=== PATIENT | male | born 1945 | race Caucasian/White ===

== ENCOUNTER 2019-02-19 18:33 | Emergency (ER) | payer MEDICARE, MEDICAID, SELFPAY ==
[2019-02-19 18:37] VITALS: BP 119/70; PULSE 59; RESP 16; TEMP 36.8; O2SAT 100; BMI 29.4
--- NOTE | 2019-02-19 19:02 | ED.SKABFB ---
HPI - Skin/Abscess/Foreign Bdy General Chief complaint: Skin/Abscess/Foreign Body Stated complaint: right foot infection Time Seen by Provider: 02/19/19 19:01 Source: patient Mode of arrival: Ambulatory Limitations: no limitations History of Present Illness HPI narrative: 73-year-old male was sent to us from the clinic over on for concern of a lower extremity cellulitis. Patient is a diabetic. They have noticed over the past several days/weeks that he has had an area on his right ankle over the Achilles tendon that has been red and tender. Unsure as the exact medications that the patient has taken it does appear that he has been on antibiotics over the past several weeks. I do think that it is Keflex according to his report. He did receive a shot of Rocephin prior to transfer here to the ER. Related Data Home Medications Medication Instructions Recorded Confirmed Metformin Hydrochloride 500 mg PO #0 10/10/05 (Glucophage) Previous Rx's Medication Instructions Recorded doxycycline hyclate 100 mg PO BID 10 Days #20 tab 02/19/19 Allergies Allergy/AdvReac Type Severity Reaction Status Date / Time No Known Drug Allergies Allergy Verified 02/19/19 18:44 Review of Systems Constitutional Constitutional: Denies fever(s) Cardiovascular Cardiovascular: Denies chest pain and Denies dyspnea Respiratory Respiratory: Denies dyspnea Gastrointestinal Gastrointestinal: Denies abdominal pain Musculoskeletal Musculoskeletal: Denies myalgias and Denies arthralgias Integumentary/Breasts Comments: Redness on the back of the right foot concern for an abscess Neurologic Neurologic: Denies behavioral changes Psychiatric Psychiatric: Denies behavioral changes Hematologic/Lymphatic Hematologic/Lymphatic: Denies easy bleeding and Denies easy bruising Allergic/Immunologic Allergic/Immunologic: Denies urticaria Patient History Medical History Diabetes (Acute) Social History Smoking Status: Never smoker Smoking Status: Never smoker Substance Use Type: marijuana Exam Initial Vital Signs Initial Vital Signs: Vital Signs Temperature 98.2 F 02/19/19 18:37 Pulse Rate 59 L 02/19/19 18:37 Respiratory Rate 16 02/19/19 18:37 Blood Pressure 119/70 02/19/19 18:37 Pulse Oximetry 100 02/19/19 18:37 Const General: cooperative and comfortable Orientation: alert, awake and oriented x3 Cardio Pulses: dorsalis pedis present on the right Skin Other: 2 cm area of fluctuance on the posterior aspect of the right heel with the Achilles tendon. No surrounding erythema. Rest of his right foot exam has no erythema Neuro General: alert, awake and oriented x3 Cognition: normal cognition Speech: speech normal Motor: muscle tone normal throughout Extrem General: normal to inspection and capillary refill normal Other: Full range of motion of right ankle Psych Appearance: grossly normal and well kempt Procedures Abscess I/D I&D #1: Site: other (Ankle) Side (if applicable): right Local Anesthetic: lidocaine 1% Amount of anesthesia used (mL): 3 Technique: incised with #11 blade Irrigation: No Packing used?: none Course Orders Ordered: Discontinued Medications Lidocaine HCl (Xylocaine 1% (Pf)) 2 ml INJ NOW ONE Stop: 02/19/19 19:17 Last Admin: 02/19/19 19:20 Dose: 2 ml [facility] Vital Signs Vital signs: Vital Signs - 8 hr 02/19/19 18:37 Temperature 98.2 F Pulse Rate 59 L Respiratory Rate 16 Blood Pressure 119/70 Pulse Oximetry 100 MDM - Skin/Abscess/Foreign Bdy MDM Narrative Medical decision making narrative: Bedside ultrasound did show a small abscess under the area in question on the back of his right ankle. This was I and D this described above with return of small amount of purulent material. There is minimal surrounding erythema. Rest of his foot exam is unremarkable. Low suspicion for septic joint. Patient is somewhat confused about what antibiotics he is taking but it does appear that he has been on and is currently taking Keflex. Given the fact that this is a abscess will switch him to doxycycline. No indication for admission the hospital for IV antibiotics. We discussed return precautions and follow-up instructions. He expressed understanding and agreement with plan. Discharge Plan Departure Patient Disposition: Home Clinical Impression: Abscess of skin or subcutaneous tissue Qualifiers: Site of cutaneous abscess: extremity Site of cutaneous abscess of extremity: lower extremity Laterality: right Qualified Code(s): L02.415 - Cutaneous abscess of right lower limb Discharge Date/Time: 02/19/19 19:33 Instructions: DI for Skin Abscess Activity Restrictions/Additional Instructions: Stop the antibiotics that you have been taking and start taking the new prescription tomorrow as directed. Contact your primary provider for follow-up. Return to the emergency department for any new or worsening symptoms Prescriptions: New doxycycline hyclate 100 mg tablet 100 mg PO BID 10 Days Qty: 20 RF: 0 No Action Metformin Hydrochloride (Glucophage) 500 mg PO Qty: 0 RF: 0 Referrals: Jcarlos Saul MD [Primary Care Provider] -
--- NOTE | 2019-02-19 19:18 | PC.NURSE ---
PCP told pt to come to ER from [facility]. Concerns of cellulitis, infection to R foot for 3 weeks. Recieved israel HUITRON at dr office today.
[2019-02-19] MEDS: LIDOCAINE 1% (PF) 2 ML INJ (19:20)
== END 2019-02-19 19:33 | disposition home or self-care (01) ==
PROVIDERS: Emergency Provider Emergency Medicine; Family Provider Family Medicine; PCP Family Medicine
DX: L02.415 Cutaneous abscess of right lower limb (principal)
CPT/HCPCS: 10060; 99281; 99283

== ENCOUNTER → 2021-04-28 08:13 | Outpatient (CLI) | payer MEDICARE, MEDICAID, SELFPAY ==
[2021-04-28 19:51] LABS: COVID19 - ORCAS (NP or Nasal) Negative (Negative)
== END ==
PROVIDERS: Family Provider Family Medicine; PCP Family Medicine; Visit Provider Physician Assistant Medical
DX: Z01.812 Encounter for preprocedural laboratory examination (principal); Z20.822 Contact with and (suspected) exposure to COVID-19
CPT/HCPCS: C9803; U0003

== ENCOUNTER → 2022-01-10 09:39 | Outpatient (CLI) | payer MEDICARE, MEDICAID, SELFPAY | PROVIDERS: Family Provider Family Medicine; PCP Family Medicine; Visit Provider Physician Assistant | DX: R39.15 Urgency of urination (principal) | CPT/HCPCS: 87086 ==

== ENCOUNTER → 2022-01-11 13:33 | Outpatient (CLI) | payer MEDICARE, MEDICAID, SELFPAY ==
[2022-01-11 20:08] LABS: Alanine Aminotransferase 26 IU/L (<50); Albumin 4.1 g/dL (3.5-5.0); Albumin Globulin Ratio 1.5 (1.0-2.8); Alkaline Phosphatase 100 U/L (38-126); Aspartate Aminotransferase 25 IU/L (17-59); BUN Creatinine Ratio 17.7 (6-22); Bilirubin Total 1.5 mg/dL (0.2-1.3); Blood Urea Nitrogen 29 mg/dL (9-20); Calcium 9.2 mg/dL (8.4-10.2); Carbon Dioxide 23 mmol/L (22-32); Chloride 106 mmol/L (98-107); Estimated Glomerular Filt Rate 44 mL/min (>60); Globulin 2.8 g/dL (1.7-4.1); Glucose 170 mg/dL (80-110); HEMOLYSIS 19 (0-50); Hemoglobin A1C% w Est Avg Glu 7.9 % (4.0-6.0); Potassium 4.1 mmol/L (3.4-5.1); Sodium 140 mmol/L (137-145); Total Protein 6.9 g/dL (6.3-8.2)
[2022-01-11 20:36] LABS: Prostate Specific Antigen 3.21 ng/mL (0.10-4.00)
== END ==
PROVIDERS: Physician Assistant; Family Provider Family Medicine; PCP Family Medicine; Visit Provider Family Medicine
DX: E11.43 Type 2 diabetes mellitus with diabetic autonomic (poly)neuropathy (principal); R39.15 Urgency of urination; Z79.4 Long term (current) use of insulin; E78.5 Hyperlipidemia, unspecified; I25.10 Atherosclerotic heart disease of native coronary artery without angina pectoris; Z12.5 Encounter for screening for malignant neoplasm of prostate
CPT/HCPCS: 80053; 83036; 84153; G0103

== ENCOUNTER → 2022-01-19 09:24 | Outpatient (CLI) | payer MEDICARE, MEDICAID, SELFPAY | PROVIDERS: Family Provider Family Medicine; PCP Family Medicine; Visit Provider Physician Assistant | DX: N40.1 Benign prostatic hyperplasia with lower urinary tract symptoms (principal); N13.8 Other obstructive and reflux uropathy | CPT/HCPCS: 87086 ==

== ENCOUNTER → 2022-02-12 10:04 | Outpatient (CLI) | payer MEDICARE, MEDICAID, SELFPAY | PROVIDERS: Family Provider Family Medicine; PCP Family Medicine; Visit Provider Family Medicine | DX: R31.0 Gross hematuria (principal) | CPT/HCPCS: 87086; 87147 ==

== ENCOUNTER → 2022-03-09 06:54 | Outpatient (CLI) | payer MEDICARE, MEDICAID, SELFPAY ==
[2022-03-09 22:14] LABS: COVID19 - ORCAS (NP or Nasal) Negative (Negative)
== END ==
PROVIDERS: Family Provider Family Medicine; PCP Family Medicine; Visit Provider Family Medicine
DX: Z20.822 Contact with and (suspected) exposure to COVID-19 (principal); Z01.812 Encounter for preprocedural laboratory examination
CPT/HCPCS: C9803; U0003

== ENCOUNTER → 2022-05-23 11:58 | Outpatient (CLI) | payer MEDICARE, MEDICAID, SELFPAY ==
[2022-05-23 19:15] LABS: Add Manual Diff / Slide Review NO; Basophils Absolute Auto 100 /uL (0-100); Basophils Percent Auto 0.8 % (0-2); Eosinophils Absolute Auto 100 /uL (0-450); Eosinophils Percent Auto 1.9 % (2-4); Lymphocytes Absolute Auto 1100 /uL (1100-4500); Lymphocytes Percent Auto 16.5 % (25-40); Mean Corpuscular HGB Conc 33.3 % (30-36); Mean Corpuscular Hemoglobin 27.7 PG (26-34); Mean Corpuscular Volume 83.3 fL (80-100); Monocytes Absolute Auto 500 /uL (0-900); Monocytes Percent Auto 7.1 % (3-14); Neutrophils Absolute Auto 4900 /uL (1500-7000); Neutrophils Percent Auto 73.7 % (50-75); Platelet Count 200 X10^3/uL (150-400); Red Blood Cell Count 5.04 X10^6/uL (4.5-5.9); White Blood Cell Count 6.6 X10^3/uL (4.5-11.0)
[2022-05-23 19:19] LABS: HEMOLYSIS 15 (0-50); Potassium 4.5 mmol/L (3.4-5.1)
[2022-05-23 19:20] LABS: BUN Creatinine Ratio 20.7 (6-22); Blood Urea Nitrogen 35 mg/dL (9-20); Carbon Dioxide 25 mmol/L (22-32); Chloride 109 mmol/L (98-107); Cholesterol 150 mg/dL (140-199); Estimated Glomerular Filt Rate 42 mL/min (>60); Glucose 101 mg/dL (80-110); HDL Cholesterol 56 mg/dL (40-60); LDL Cholesterol Calculated 57 mg/dL (<100); Sodium 141 mmol/L (137-145); Triglycerides 187 mg/dL (35-150)
[2022-05-23 19:22] LABS: Hemoglobin A1C% w Est Avg Glu 6.8 % (4.0-6.0); NT-proBNP (BNP-Adult 18+) 596 pg/mL (<450)
[2022-05-23 19:27] LABS: Free T4, Direct Thyroxine 0.82 ng/dL (0.78-2.19)
[2022-05-23 19:41] LABS: TSH w/ Reflex to FT4 1.73 uIU/mL (0.47-4.68)
[2022-05-23 19:55] LABS: Creatinine Urine Random 146.4 mg/dL
[2022-05-23 20:01] LABS: Microalbumi Creatinin Ratio Ur 6.1 ug/mg CR (<30); Microalbumin Urine Random 0.9 mg/dL (0-1.6)
== END ==
PROVIDERS: Family Provider Family Medicine; PCP Family Medicine; Visit Provider Family Medicine
DX: E78.2 Mixed hyperlipidemia (principal); E11.43 Type 2 diabetes mellitus with diabetic autonomic (poly)neuropathy; I50.22 Chronic systolic (congestive) heart failure; F11.90 Opioid use, unspecified, uncomplicated; I25.10 Atherosclerotic heart disease of native coronary artery without angina pectoris; I50.9 Heart failure, unspecified; N18.9 Chronic kidney disease, unspecified; Z79.899 Other long term (current) drug therapy; E78.5 Hyperlipidemia, unspecified; N13.8 Other obstructive and reflux uropathy; N18.32 Chronic kidney disease, stage 3b; N40.1 Benign prostatic hyperplasia with lower urinary tract symptoms; Z79.01 Long term (current) use of anticoagulants; Z79.4 Long term (current) use of insulin
CPT/HCPCS: 80048; 80061; 82043; 82570; 83036; 83880; 84439; 84443; 85025

== ENCOUNTER → 2022-12-06 13:03 | Outpatient (CLI) | payer MEDICARE, MEDICAID, SELFPAY ==
[2022-12-06 19:48] LABS: BUN Creatinine Ratio 15.6 (6-22); Blood Urea Nitrogen 26 mg/dL (9-20); Calcium 9.3 mg/dL (8.4-10.2); Carbon Dioxide 22 mmol/L (22-32); Chloride 109 mmol/L (98-107); Estimated Glomerular Filt Rate 42 mL/min (>60); Glucose 231 mg/dL (80-110); HEMOLYSIS < 15 (0-50); Potassium 4.4 mmol/L (3.4-5.1); Sodium 141 mmol/L (137-145)
[2022-12-06 19:55] LABS: NT-proBNP (BNP-Adult 18+) 1360 pg/mL (<450)
== END ==
PROVIDERS: Family Provider Family Medicine; PCP Family Medicine; Visit Provider Family Medicine
DX: E11.43 Type 2 diabetes mellitus with diabetic autonomic (poly)neuropathy (principal); I50.22 Chronic systolic (congestive) heart failure; I25.10 Atherosclerotic heart disease of native coronary artery without angina pectoris; I50.9 Heart failure, unspecified; Z79.899 Other long term (current) drug therapy; F11.90 Opioid use, unspecified, uncomplicated; N18.9 Chronic kidney disease, unspecified
CPT/HCPCS: 80048; 83036; 83880

== ENCOUNTER → 2023-04-11 10:36 | Outpatient (CLI) | payer MEDICARE, MEDICAID, SELFPAY ==
[2023-04-11 20:41] LABS: Add Manual Diff / Slide Review NO; Basophils Absolute Auto 0 /uL (0-100); Basophils Percent Auto 0.7 % (0-2); Eosinophils Absolute Auto 100 /uL (0-450); Eosinophils Percent Auto 2.2 % (2-4); Hematocrit 40.9 % (41-53); Hemoglobin 13.7 g/dL (13.5-17.5); Lymphocytes Absolute Auto 1100 /uL (1100-4500); Lymphocytes Percent Auto 16.7 % (25-40); Mean Corpuscular HGB Conc 33.5 % (30-36); Mean Corpuscular Hemoglobin 28.8 PG (26-34); Mean Corpuscular Volume 85.9 fL (80-100); Monocytes Absolute Auto 500 /uL (0-900); Monocytes Percent Auto 7.4 % (3-14); Neutrophils Absolute Auto 4700 /uL (1500-7000); Platelet Count 175 X10^3/uL (150-400); Red Blood Cell Count 4.76 X10^6/uL (4.5-5.9); Red Cell Distribution Width 14.2 % (11.6-14.8); White Blood Cell Count 6.4 X10^3/uL (4.5-11.0)
[2023-04-11 20:55] LABS: BUN Creatinine Ratio 20.4 (6-22); Blood Urea Nitrogen 33 mg/dL (9-20); Calcium 8.9 mg/dL (8.4-10.2); Carbon Dioxide 23 mmol/L (22-32); Chloride 109 mmol/L (98-107); Cholesterol 150 mg/dL (140-199); Estimated Glomerular Filt Rate 44 mL/min (>60); Glucose 192 mg/dL (80-110); HDL Cholesterol 48 mg/dL (40-60); HEMOLYSIS < 15 (0-50); LDL Cholesterol Calculated 69 mg/dL (<100); Potassium 4.5 mmol/L (3.4-5.1); Sodium 140 mmol/L (137-145); Triglycerides 165 mg/dL (35-150)
[2023-04-11 21:10] LABS: Hemoglobin A1C% w Est Avg Glu 7.2 % (4.0-6.0)
[2023-04-11 21:16] LABS: Creatinine Urine Random 125.6 mg/dL
[2023-04-11 21:17] LABS: Microalbumi Creatinin Ratio Ur 13.5 ug/mg CR (<30); Microalbumin Urine Random 1.7 mg/dL (0-1.6)
== END ==
PROVIDERS: Family Provider Family Medicine; PCP Family Medicine; Visit Provider Family Medicine
DX: I10 Essential (primary) hypertension (principal); E11.43 Type 2 diabetes mellitus with diabetic autonomic (poly)neuropathy; I25.10 Atherosclerotic heart disease of native coronary artery without angina pectoris; I50.9 Heart failure, unspecified; N18.9 Chronic kidney disease, unspecified; N40.0 Benign prostatic hyperplasia without lower urinary tract symptoms; E78.5 Hyperlipidemia, unspecified
CPT/HCPCS: 80048; 80061; 82043; 82570; 83036; 85025

== ENCOUNTER → 2023-10-14 09:59 | Outpatient (CLI) | payer MEDICARE, MEDICAID, SELFPAY ==
[2023-10-14 19:54] LABS: Add Manual Diff / Slide Review NO; Basophils Absolute Auto 100 /uL (0-100); Basophils Percent Auto 1.4 % (0-2); Eosinophils Absolute Auto 200 /uL (0-450); Eosinophils Percent Auto 2.4 % (2-4); Hematocrit 41.9 % (41-53); Hemoglobin 13.9 g/dL (13.5-17.5); Lymphocytes Absolute Auto 1300 /uL (1100-4500); Lymphocytes Percent Auto 18.4 % (25-40); Mean Corpuscular HGB Conc 33.1 % (30-36); Mean Corpuscular Hemoglobin 28.7 PG (26-34); Mean Corpuscular Volume 86.8 fL (80-100); Monocytes Absolute Auto 600 /uL (0-900); Monocytes Percent Auto 8.4 % (3-14); Neutrophils Absolute Auto 5000 /uL (1500-7000); Neutrophils Percent Auto 69.4 % (50-75); Platelet Count 176 X10^3/uL (150-400); Red Blood Cell Count 4.82 X10^6/uL (4.5-5.9); White Blood Cell Count 7.2 X10^3/uL (4.5-11.0)
[2023-10-14 19:57] LABS: BUN Creatinine Ratio 22.8 (6-22); Blood Urea Nitrogen 39 mg/dL (9-20); Calcium 9.1 mg/dL (8.4-10.2); Carbon Dioxide 20 mmol/L (22-32); Chloride 114 mmol/L (98-107); Cholesterol 158 mg/dL (140-199); Estimated Glomerular Filt Rate 41 mL/min (>60); Glucose 199 mg/dL (80-110); HDL Cholesterol 45 mg/dL (40-60); HEMOLYSIS < 15 (0-50); LDL Cholesterol Calculated 67 mg/dL (<100); Potassium 4.9 mmol/L (3.4-5.1); Sodium 141 mmol/L (137-145); Triglycerides 228 mg/dL (35-150)
[2023-10-14 20:02] LABS: Hemoglobin A1C% w Est Avg Glu 6.8 % (4.0-6.0)
[2023-10-14 20:07] LABS: Creatinine Urine Random 89.92 mg/dL
[2023-10-14 20:08] LABS: NT-proBNP (BNP-Adult 18+) 1140 pg/mL (<450)
[2023-10-14 20:11] LABS: Microalbumin Urine Random 1.5 mg/dL (0-1.6)
== END ==
PROVIDERS: Family Provider Family Medicine; PCP Family Medicine; Visit Provider Family Medicine
DX: N18.32 Chronic kidney disease, stage 3b (principal); E11.43 Type 2 diabetes mellitus with diabetic autonomic (poly)neuropathy; R06.02 Shortness of breath; Z95.1 Presence of aortocoronary bypass graft; I25.10 Atherosclerotic heart disease of native coronary artery without angina pectoris; E78.5 Hyperlipidemia, unspecified; I12.9 Hypertensive chronic kidney disease with stage 1 through stage 4 chronic kidney disease, or unspecified chronic kidney disease
CPT/HCPCS: 80048; 80061; 82043; 82570; 83036; 83880; 85025

== ENCOUNTER → 2024-03-09 09:25 | Outpatient (CLI) | payer MEDICARE, MEDICAID, SELFPAY ==
[2024-03-09 19:23] LABS: BUN Creatinine Ratio 19.5 (6-22); Blood Urea Nitrogen 34 mg/dL (9-20); Calcium 8.7 mg/dL (8.4-10.2); Carbon Dioxide 23 mmol/L (22-32); Chloride 109 mmol/L (98-107); Estimated Glomerular Filt Rate 40 mL/min (>60); Glucose 200 mg/dL (80-110); HEMOLYSIS 17 (0-50); Potassium 4.3 mmol/L (3.4-5.1); Sodium 137 mmol/L (137-145)
== END ==
PROVIDERS: Family Provider Family Medicine; PCP Family Medicine; Visit Provider Family Medicine
DX: Z79.899 Other long term (current) drug therapy (principal); I12.9 Hypertensive chronic kidney disease with stage 1 through stage 4 chronic kidney disease, or unspecified chronic kidney disease; E78.2 Mixed hyperlipidemia; N18.32 Chronic kidney disease, stage 3b; F11.90 Opioid use, unspecified, uncomplicated; E11.43 Type 2 diabetes mellitus with diabetic autonomic (poly)neuropathy; Z79.4 Long term (current) use of insulin
CPT/HCPCS: 80048; 80324; 82043; 82570; 83036

== ENCOUNTER 2024-05-03 16:55 | Emergency (ER) | payer MEDICARE, MEDICAID, SELFPAY ==
[2024-05-03 17:30] VITALS: BP 136/63; PULSE 91; RESP 18; TEMP 37.7; O2SAT 99; BMI 31.4
[2024-05-03 21:44] VITALS: TEMP 37.1
--- NOTE | 2024-05-03 22:17 | DI.RAD.S_ITS ---
PROCEDURE: XR FOOT RT MIN 3V INDICATIONS: infection in toe TECHNIQUE: 3 views of the foot were acquired. COMPARISON: None. FINDINGS: Bones: No fractures or dislocations. Osteoarthritic changes are noted throughout right foot. Erosive changes are seen involving lateral aspect of 2nd middle phalangeal head and neck as well as adjacent lateral aspect of 2nd proximal phalangeal base concerning for osteomyelitis in this area. No other area of bony erosive changes. Small plantar and dorsal calcaneal enthesophytes are seen. No suspicious bony lesions. Soft tissues: Significant soft tissue swelling surrounding 2nd toe is noted. No tibiotalar joint effusion. Achilles tendon appears normal. IMPRESSION: Soft tissue swelling surrounding 2nd toe with suggestion of osteomyelitis involving lateral aspect of 2nd DIP joint as above. No fracture or dislocation. Right foot osteoarthritis. Dictated by: Lg Boyer M.D. on 05/03/2024 at 22:54 Approved by: Lg Boyer M.D. on 05/03/2024 at 22:55
[2024-05-03 22:18] VITALS: BP 154/72; PULSE 85; RESP 18; O2SAT 99
[2024-05-03 23:08] LABS: Add Manual Diff / Slide Review NO; Basophils Absolute Auto 100 /uL (0-100); Basophils Percent Auto 0.6 % (0-2); Eosinophils Absolute Auto 100 /uL (0-450); Eosinophils Percent Auto 0.7 % (2-4); Hematocrit 40.6 % (41-53); Hemoglobin 13.5 g/dL (13.5-17.5); Lymphocytes Absolute Auto 1000 /uL (1100-4500); Lymphocytes Percent Auto 7.8 % (25-40); Mean Corpuscular HGB Conc 33.3 % (30-36); Mean Corpuscular Hemoglobin 28.1 PG (26-34); Mean Corpuscular Volume 84.4 fL (80-100); Monocytes Absolute Auto 1200 /uL (0-900); Monocytes Percent Auto 9.2 % (3-14); Neutrophils Absolute Auto 10900 /uL (1500-7000); Neutrophils Percent Auto 81.7 % (50-75); Platelet Count 172 X10^3/uL (150-400); Red Blood Cell Count 4.81 X10^6/uL (4.5-5.9); White Blood Cell Count 13.3 X10^3/uL (4.5-11.0)
[2024-05-03 23:13] LABS: Alanine Aminotransferase 25 IU/L (<50); Albumin Globulin Ratio 1.3 (1.0-2.8); Alkaline Phosphatase 126 U/L (38-126); Aspartate Aminotransferase 23 IU/L (17-59); BUN Creatinine Ratio 16.8 (6-22); Bilirubin Total 1.7 mg/dL (0.2-1.3); Blood Urea Nitrogen 25 mg/dL (9-20); Calcium 8.9 mg/dL (8.4-10.2); Carbon Dioxide 22 mmol/L (22-32); Chloride 108 mmol/L (98-107); Estimated Glomerular Filt Rate 48 mL/min (>60); Globulin 3.1 g/dL (1.7-4.1); Glucose 190 mg/dL (80-110); HEMOLYSIS < 15 (0-50); Potassium 3.4 mmol/L (3.4-5.1); Sodium 140 mmol/L (137-145); Total Protein 7.1 g/dL (6.3-8.2)
[2024-05-03 23:49] VITALS: BP 168/76; PULSE 86; RESP 18; TEMP 37.7; O2SAT 98
--- NOTE | 2024-05-04 00:13 | ED.LOWEXIN ---
HPI - Extremity Injury (Lower) General Chief Complaint: Extremity Injury, Lower Stated Complaint: abcess on 2nd toe on rt foot Time Seen by Provider: 05/04/24 00:12 Source: patient and family Mode of arrival: Wheelchair History of Present Illness HPI Narrative: Patient is a 79-year-old male with a past medical history hypertension hyperlipidemia diabetes AFib on Eliquis comes into the ED from home for evaluation of toe swelling pain. States he noticed a proximally 2-3 days ago that there was a little ulcers/cut on the top of his 2nd toe, he states that since then has gotten significantly more swollen states that he noticed significant amount of purulent discharge coming from that area, he states he does have a history of diabetic neuropathy therefore states that the pain is ?manageable but states that he does notice the increased pain to that area. He denies any other systemic symptoms such as headache visual disturbances chest pain shortness breath fever chills nausea vomiting abdominal pain or any other GI/ symptoms at this time Related Data Previous Rx's Medication Instructions Recorded insulin syringe,safety needle 0.3 #300 ea 06/22/22 mL 31 gauge x 5/16 apixaban 2.5 mg tablet (Eliquis) 2.5 mg PO BID #180 tabs 07/08/23 insulin glargine 100 unit/mL See Rx Instructions .Route 11/11/23 subcutaneous solution (Lantus .COMPLEX #10 mL U-100 Insulin) tamsulosin 0.4 mg capsule (Flomax) 0.4 mg PO BEDTIME #90 caps 12/04/23 gabapentin 300 mg capsule 600 mg (2 x 300 mg) PO TID #180 02/03/24 caps insulin aspart U-100 100 unit/mL See Rx Instructions .Route 02/12/24 subcutaneous solution (Novolog .COMPLEX #30 mL U-100 Insulin aspart) metoprolol tartrate 25 mg tablet 25 mg PO DAILY #90 tabs 03/24/24 oxycodone 10 mg tablet 10 mg PO BID PRN pain #112 tabs 04/07/24 colchicine 0.6 mg capsule 0.6 mg PO DAILY #90 caps 04/15/24 allopurinol 300 mg tablet 300 mg PO DAILY #90 tabs 04/24/24 diazepam 5 mg tablet 5 mg PO BID-TID PRN anxiety #90 04/27/24 tabs simvastatin 40 mg tablet See Rx Instructions .Route 04/29/24 .COMPLEX #90 tabs doxycycline monohydrate 100 mg 100 mg PO BID 7 days #14 caps 05/04/24 capsule Allergies Allergy/AdvReac Type Severity Reaction Status Date / Time No Known Drug Allergies Allergy Verified 04/15/24 14:05 Review of Systems Review of Systems Narrative: General: Denies fever, chills, weight loss HEENT: Denies headache, eye drainage, eye irritation, head trauma, sore throat, voice change Cardiovascular: Denies any chest pain, palpitations, shortness of breath, tachycardia Respiratory: Denies any shortness of breath, cough, wheeze, stridor GI/: Denies any abdominal pain, nausea, vomiting, diarrhea, bright red blood per rectum, melanotic stools, urinary frequency, urinary retention, dysuria, hematuria MSK: Swelling to 2nd digit of the right foot with purulent discharge Skin: Denies any rashes, lesions, discoloration Neuro: Denies any headache, lightheadedness, dizziness, fainting, weakness Psych: Denies SI/HI Patient History Medical History (Updated 05/04/24 @ 00:32 by Alex Benavides DO) Chronic anticoagulation BPH (benign prostatic hyperplasia) Hyperlipidemia Type 1 diabetes mellitus with diabetic neuropathy, unspecified Diabetes Social History Smoking Status: Never smoker Smoking Status: Never smoker Exam Narrative Exam Narrative: General: Cooperative, comfortable, well-developed, not in acute distress HEENT: Normocephalic, atraumatic, PERRLA, normal sclera, eyelids normal, Neck: Active full range of motion, atraumatic Chest: Normal to inspection, negative crepitus, no overlying erythema ecchymosis Respiratory: Normal respiratory effort, not in acute respiratory distress, clear to auscultation bilaterally negative cough, wheeze, tachypnea, rhonchi, rales Cardiology: Regular rate rhythm negative gallop, murmur, rubs GI/: Normal to inspection, soft, nonrigid, no tenderness to palpation, exam deferred MSK: Bilateral lower extremities neurovascularly intact does have history of polyneuropathy given diabetes at baseline, the 2nd digit of the right foot erythematous edematous with superficial ulcer with purulent discharge noted no streaking noted Skin: No rashes lesions noted Neuro: Alert awake oriented x3, moves all 4 extremities spontaneously, cranial nerves intact, able to answer all questions appropriately follows commands appropriately Psych: Cooperative, negative suicidal or homicidal ideations Initial Vital Signs Initial Vital Signs: Vital Signs Temperature 99.9 F H 05/03/24 17:30 Pulse Rate 91 H 05/03/24 17:30 Respiratory Rate 18 05/03/24 17:30 Blood Pressure 136/63 05/03/24 17:30 Pulse Oximetry 99 05/03/24 17:30 Oxygen Delivery Method Room Air 05/03/24 17:30 Course Orders Ordered: ED Orders 05/03/24 22:17 XR foot RT min 3V Stat 05/03/24 22:55 Complete Blood Count AUTO DIFF Stat Comprehensive Metabolic Panel Stat Vital Signs Vital signs: Vital Signs - 8 hr 05/03/24 17:30 05/03/24 21:44 05/03/24 22:18 Temperature 99.9 F H 98.8 F Pulse Rate 91 H 85 Respiratory Rate 18 18 Blood Pressure 136/63 154/72 H Pulse Oximetry 99 99 Oxygen Delivery Method Room Air Room Air 05/03/24 23:49 Temperature 99.9 F H Pulse Rate 86 Respiratory Rate 18 Blood Pressure 168/76 H Pulse Oximetry 98 Oxygen Delivery Method Room Air MDM - Extremity Injury (Lower) Differential Diagnosis Differential diagnosis: Likely other (Cellulitis, abscess, osteomyelitis, electrolyte abnormality) Lab Data 05/03/24 22:55 05/03/24 22:55 Labs: Lab Results 05/03/24 Range/Units 22:55 WBC 13.3 H (4.5-11.0) X10^3/uL RBC 4.81 (4.5-5.9) X10^6/uL Hgb 13.5 (13.5-17.5) g/dL Hct 40.6 L (41-53) % MCV 84.4 (80-100) fL MCH 28.1 (26-34) PG MCHC 33.3 (30-36) % RDW 14.0 (11.6-14.8) % Plt Count 172 (150-400) X10^3/uL Neut % (Auto) 81.7 H (50-75) % Lymph % (Auto) 7.8 L (25-40) % [place] % (Auto) 9.2 (3-14) % Eos % (Auto) 0.7 L (2-4) % Baso % (Auto) 0.6 (0-2) % Neut # (Auto) 55629 H (3951-5199) /uL Lymph # (Auto) 1000 L (2647-6501) /uL [place] # (Auto) 1200 H (0-900) /uL Eos # (Auto) 100 (0-450) /uL Baso # (Auto) 100 (0-100) /uL Sodium 140 (137-145) mmol/L Potassium 3.4 (3.4-5.1) mmol/L Chloride 108 H (98-107) mmol/L Carbon Dioxide 22 (22-32) mmol/L BUN 25 H (9-20) mg/dL Creatinine 1.49 H (0.66-1.25) mg/dL Estimated GFR 48 L (>60) mL/min BUN/Creatinine Ratio 16.8 (6-22) Glucose 190 H (80-110) mg/dL Calcium 8.9 (8.4-10.2) mg/dL Total Bilirubin 1.7 H (0.2-1.3) mg/dL AST 23 (17-59) IU/L ALT 25 (<50) IU/L Alkaline Phosphatase 126 (38-126) U/L Total Protein 7.1 (6.3-8.2) g/dL Albumin 4.0 (3.5-5.0) g/dL Globulin 3.1 (1.7-4.1) g/dL Albumin/Globulin Ratio 1.3 (1.0-2.8) Imaging Data Extremity x-ray #1: Radiologist's Impression: [address] [address] XRay Report Signed Patient: Raman Alberto MR#: [id number] : 1945 Acct:[id number] Age/Sex: 79 / M Date of Service: 05/03/24 Loc: ED Accession Number: [id number] Procedure: XR foot RT min 3V Ordering Provider: Alex Benavides D.O. PROCEDURE: XR FOOT RT MIN 3V INDICATIONS: infection in toe TECHNIQUE: 3 views of the foot were acquired. COMPARISON: None. FINDINGS: Bones: No fractures or dislocations. Osteoarthritic changes are noted throughout right foot. Erosive changes are seen involving lateral aspect of 2nd middle phalangeal head and neck as well as adjacent lateral aspect of 2nd proximal phalangeal base concerning for osteomyelitis in this area. No other area of bony erosive changes. Small plantar and dorsal calcaneal enthesophytes are seen. No suspicious bony lesions. Soft tissues: Significant soft tissue swelling surrounding 2nd toe is noted. No tibiotalar joint effusion. Achilles tendon appears normal. IMPRESSION: Soft tissue swelling surrounding 2nd toe with suggestion of osteomyelitis involving lateral aspect of 2nd DIP joint as above. No fracture or dislocation. Right foot osteoarthritis. MDM Narrative Medical decision making narrative: 79-year-old male with a history of AFib on Eliquis hypertension hyperlipidemia diabetes presents for swelling pain purulent discharge to his right toe 2nd digit 3 days ago states he noticed a small little cut since then has had increased swelling redness and discharge from that foot. He denies any other systemic symptoms has a history of diabetic neuropathy is at baseline. Patient afebrile does have a leukocytosis of 13.3, but otherwise not meeting any sepsis or sirs criteria. X-ray showing soft tissue swelling suggestion of osteomyelitis of the lateral aspect of the 2nd PIP. Patient was given 1st dose of IV antibiotics here vancomycin cefepime, did have a discussion with orthopedic surgery Dr. Park, who agrees that given patient not meeting sepsis sirs criteria patient to be discharged home with oral antibiotics and to follow up outpatient Orthopedic or Podiatry. This was instructed to the patient he understands and agrees with this plan. Strict return precautions given he verbalized understanding of this and agrees to being discharged home with outpatient follow up Discharge Plan Departure Patient Disposition: Home Clinical Impression: Cellulitis Instructions: DI for Osteomyelitis Activity Restrictions/Additional Instructions: Please follow up with Orthopedic surgery and/or Podiatry immediately for your cellulitis and possible osteomyelitis of your 2nd toe Please return to the emergency department if you start developing fevers worsening symptoms Please read the discharge instructions sheet carefully and bring all papers to all doctor follow-up visits, as it may contain information that your doctor may want to see. Disease processes change and evolve, if your symptoms worsen or if you develop any new symptoms that are concerning to you please return for evaluation. Your evaluation today does not show any evidence of any life-threatening/serious illnesses requiring admission to the hospital or surgery. Please follow-up with your doctor for re-evaluation in approximately 1 day. Seek immediate medical attention for any worrisome symptoms. *If you do not have a primary care provider please contact the [facility] Resource line at [phone]. They will ask some questions about your medical history and help get you set up with a doctor in the community. Prescriptions: New doxycycline monohydrate 100 mg capsule 100 mg PO BID 7 Days Qty: 14 0RF No Action (DME) insulin syringe,safety needle 0.3 mL 31 gauge x 5/16 syringe See Rx Instructions .Route Qty: 300 3RF Rx Instructions: Inject Insulin three times a day Eliquis 2.5 mg tablet 2.5 mg PO BID Qty: 180 3RF Lantus U-100 Insulin 100 unit/mL solution See Rx Instructions .ROUTE .COMPLEX Qty: 10 5RF Dose Instruction: INJECT 20 UNITS UNDER THE SKIN ONCE DAILY AT BEDTIME Rx Instructions: INJECT 20 UNITS UNDER THE SKIN ONCE DAILY AT BEDTIME tamsulosin [Flomax] 0.4 mg capsule 0.4 mg PO BEDTIME Qty: 90 3RF gabapentin 300 mg capsule 600 mg PO TID Qty: 180 5RF insulin aspart U-100 [Novolog U-100 Insulin aspart] 100 unit/mL solution See Rx Instructions .ROUTE .COMPLEX Qty: 30 1RF Dose Instruction: INJECT 10 UNITS UNDER THE SKIN THREE TIMES A DAY Rx Instructions: INJECT 10 UNITS UNDER THE SKIN THREE TIMES A DAY metoprolol tartrate 25 mg tablet 25 mg PO DAILY Qty: 90 1RF oxycodone 10 mg tablet 10 mg PO BID PRN (Reason: pain) Qty: 112 0RF Rx Instructions: Must last 56 days. Release date is 04/08/24 allopurinol 300 mg tablet 300 mg PO DAILY Qty: 90 1RF diazepam 5 mg tablet 5 mg PO BID-TID PRN (Reason: anxiety) Qty: 90 0RF Rx Instructions: Must last 30 days. Release date 04/28/24 simvastatin 40 mg tablet See Rx Instructions .ROUTE .COMPLEX Qty: 90 1RF Dose Instruction: TAKE ONE TABLET BY MOUTH EVERY DAY Rx Instructions: TAKE ONE TABLET BY MOUTH EVERY DAY colchicine 0.6 mg capsule 0.6 mg PO DAILY Qty: 90 0RF Rx Instructions: Take on twice daily for day one then one daily for 2 months Referrals: Josef Saucedo MD [Physician] - As soon as possible Jcarlos Saul MD [Primary Care Provider] - Stand Alone Forms: Patient Portal/API/Survey
[2024-05-04] MEDS: CEFEPIME 2 GM in SODIUM CHLORIDE 0.9% 100 ML IV (00:30)
[2024-05-04] MEDS: SODIUM CHLORIDE 0.9% 1,000 ML 1000 ML IV (00:32)
[2024-05-04] MEDS: VANCOMYCIN 2,000 MG/400 ML PIGGYBACK 200 MG IV (01:08)
[2024-05-04 01:18] VITALS: BP 168/70; PULSE 77; RESP 18; TEMP 37.4; O2SAT 98
[2024-05-04 04:33] VITALS: BP 187/89; PULSE 81; RESP 18; O2SAT 96
== END 2024-05-04 06:21 | disposition home or self-care (01) ==
PROVIDERS: Emergency Provider Student in an Organized Health Care Education/Training Program; Family Provider Family Medicine; PCP Family Medicine
DX: L03.031 Cellulitis of right toe (principal); E11.40 Type 2 diabetes mellitus with diabetic neuropathy, unspecified; Z79.4 Long term (current) use of insulin
CPT/HCPCS: 36415; 73630; 80053; 85025; 96365; 96366; 96367; 99284; J0692

== ENCOUNTER → 2024-06-16 | Outpatient (CLI) | payer MEDICARE, MEDICAID, SELFPAY ==
--- NOTE | 2024-06-16 12:41 | DI.ECHO.S_ITS ---
[place] [facility]---------+ [facility] : : [address] : : [place] : : [id number] : : Phone: [phone] Echocardiogram Report + + :Name: DENNIS RUSS Study Date: 06/16/2024 Height: 72 in : [id number] ReadingLocation: Weight: 218 lb : : Gender: Male BSA: 2.2 m2 : :: 1945 Age: 79 yrs BP: 136/71 mmHg: :Reason For Study: Congestive Heart Failure : :Ordering Physician: KELLIE, : :TAVON Performed By: Bisi Kerr : :Referring: TAVON HOPKINS : + + Interpretation Summary The left ventricle is moderate-severely dilated. The ejection fraction is estimated to be 25-30%. There is severe hypokinesis to akinesis along the inferior segment, inferolateral segment, and extends into the periapical segments. The right ventricle grossly appears normal in size with probable normal systolic function. Pulmonary artery pressures cannot be estimated because of the lack of a measurable TR jet velocity but the IVC suggests a CVP of around 3 mmHg. The left atrium is mildly dilated. There is a bioprosthetic mitral valve. The prosthetic mitral valve is well-seated. There is no mitral regurgitation noted. The aortic root is normal size. Procedure: A two-dimensional transthoracic echocardiogram with color flow and Doppler was performed. The study quality was technically adequate. Comparison is made with the echocardiogram of 2005. The heart rate ranged between 64-65 bpm during the study. Left Ventricle: The left ventricle is moderate-severely dilated. There is normal left ventricular wall thickness. The ejection fraction is estimated to be 25-30%. There is severe hypokinesis to akinesis along the inferior segment, inferolateral segment, and extends into the periapical segments. Diastolic function could not be accurately assessed due to unobtainable data. Right Ventricle: The right ventricle grossly appears normal in size with probable normal systolic function. Atria: The left atrium is mildly dilated. Right atrial size is normal. The interatrial septum grossly appears intact with no obvious evidence for an atrial septal defect. Mitral Valve: There is a bioprosthetic mitral valve. The prosthetic mitral valve is well-seated. There is no mitral regurgitation noted. Aortic Valve: The aortic valve is trileaflet. The aortic valve opens well. There is trace aortic regurgitation. Tricuspid Valve: The tricuspid valve leaflets are thin and pliable. There is a trace or physiologic amount of tricuspid regurgitation. Pulmonary artery pressures cannot be estimated because of the lack of a measurable TR jet velocity but the IVC suggests a CVP of around 3 mmHg. Pulmonic Valve: The pulmonic valve is not well seen, but is grossly normal. There is a trace or physiologic amount of pulmonic regurgitation. Great Vessels: The aortic root is normal size. The ascending aorta is normal in size. The aortic arch is normal in size. The IVC is of normal diameter and collapses greater than 50% with a sniff. This suggests a low right atrial pressure of 3 mm Hg. Pericardium/ Pleura There is no pericardial effusion. There is no pleural effusion. MMode/2D Measurements & Calculations LVIDd: 6.4 cm LVOT diam: 2.1 cm LVIDs: 5.9 cm Ao root diam: 3.6 cm FS: 8.3 % asc Aorta Diam: 3.0 cm IVSd: 1.2 cm Ao Arch Diam (Prox Trans): 2.0 cm LVPWd: 0.08 cm LV ahuja. diameter/BSA (cm/m^2): 2.9 LV sys. diameter/BSA (cm/m^2): 2.6 LA A2 area: 22.2 cm2 RA long axis: 4.3 cm LA A4 area: 25.3 cm2 RA area: 10.3 cm2 LA length (vol): 5.4 cm RA vol: 21.3 ml LA vol: 88.4 ml RA : 9.7 ml/m2 LA vol index: 40.0 ml/m2 IVC diam: 1.6 cm RVD1 (basal): 3.4 cm Doppler Measurements & Calculations Ao V2 max: 114.3 cm/sec LVOT Max Abelardo: 45.8 cm/sec Ao V2 mean: 84.1 cm/sec LV V1 max P.84 mmHg Ao max P.2 mmHg LV V1 VTI: 11.4 cm Ao mean P.2 mmHg JANIS(I,D): 1.3 cm2 Ao V2 VTI: 30.1 cm JANIS(V,D): 1.4 cm2 sev ratio: 0.38 JANIS indexed to BSA (cm^2/m^2): 0.58 MV E max abelardo: 92.1 cm/sec PA V2 max: 59.2 cm/sec MV A max abelardo: 114.6 cm/sec PA V2 mean: 42.6 cm/sec MV E/A: 0.80 PA mean P.79 mmHg MV dec time: 0.26 sec PA pr(Accel): 37.9 mmHg MVA(VTI): 0.76 cm2 Pulpraneeth A Revs Abelardo: 31.7 cm/sec MV V2 mean: 87.5 cm/sec MV mean P.6 mmHg MV V2 VTI: 51.3 cm SV(LVOT): 38.8 ml Reading Physician:03:57 PM
== END ==
PROVIDERS: Family Provider Family Medicine; PCP Family Medicine; Referring Provider Family Medicine; Visit Provider Family Medicine
DX: I25.10 Atherosclerotic heart disease of native coronary artery without angina pectoris (principal); I50.9 Heart failure, unspecified; Z95.2 Presence of prosthetic heart valve
CPT/HCPCS: 93306

== ENCOUNTER → 2024-06-25 14:26 | Outpatient (CLI) | payer MEDICARE, MEDICAID, SELFPAY ==
[2024-06-25 20:07] LABS: Uric Acid 5.5 mg/dL (3.5-8.5)
[2024-06-25 20:08] LABS: Bacteria Urine None Seen; RBC Urine None Seen (0-5/HPF); Squamous Epithelial Cell Urine None Seen (0-5/HPF); Urine Volume 10mL (spun); WBC Urine 5-10/HPF (0-5/HPF)
[2024-06-25 20:09] LABS: Culture Indicated Urine Specimen Cultured
== END ==
PROVIDERS: Family Provider Family Medicine; PCP Family Medicine; Visit Provider Physician Assistant Medical
DX: N20.0 Calculus of kidney (principal); M10.9 Gout, unspecified
CPT/HCPCS: 81015; 84550; 87086

== ENCOUNTER → 2024-07-22 09:30 | Outpatient (CLI) | payer MEDICARE, MEDICAID, SELFPAY ==
[2024-07-22 19:34] LABS: Crystals Body Fluid - IN-HOUSE Monosodium Urate MSU
== END ==
PROVIDERS: Family Provider Family Medicine; PCP Family Medicine; Visit Provider Family Medicine
DX: M70.21 Olecranon bursitis, right elbow (principal); M10.9 Gout, unspecified
CPT/HCPCS: 87070; 87075; 87205; 89060

== ENCOUNTER → 2024-07-29 13:36 | Outpatient (CLI) | payer MEDICARE, MEDICAID, SELFPAY ==
[2024-07-29 19:29] LABS: BUN Creatinine Ratio 24.5 (6-22); Blood Urea Nitrogen 47 mg/dL (9-20); Calcium 9.8 mg/dL (8.4-10.2); Carbon Dioxide 21 mmol/L (22-32); Chloride 105 mmol/L (98-107); Estimated Glomerular Filt Rate 35 mL/min (>60); Glucose 128 mg/dL (70-99); HEMOLYSIS < 15 (0-50); Potassium 4.8 mmol/L (3.4-5.1); Sodium 139 mmol/L (137-145)
[2024-07-29 19:37] LABS: NT-proBNP (BNP-Adult 18+) 1280 pg/mL (<450)
[2024-07-29 19:59] LABS: TSH w/ Reflex to FT4 2.98 uIU/mL (0.47-4.68)
== END ==
PROVIDERS: Family Provider Family Medicine; PCP Family Medicine; Visit Provider Family Medicine
DX: I25.10 Atherosclerotic heart disease of native coronary artery without angina pectoris (principal); N18.32 Chronic kidney disease, stage 3b; I50.9 Heart failure, unspecified; R06.02 Shortness of breath
CPT/HCPCS: 80048; 83880; 84443

== ENCOUNTER → 2024-12-16 10:58 | Outpatient (CLI) | payer MEDICARE, MEDICAID, SELFPAY ==
[2024-12-16 19:23] LABS: Add Manual Diff / Slide Review NO; Hematocrit 47.2 % (41-53); Hemoglobin 15.6 g/dL (13.5-17.5); Lymphocytes Absolute Auto 900 /uL (1100-4500); Mean Corpuscular HGB Conc 33.0 % (30-36); Mean Corpuscular Hemoglobin 29.2 PG (26-34); Mean Corpuscular Volume 88.3 fL (80-100); Platelet Count 161 X10^3/uL (150-400)
[2024-12-16 19:42] LABS: Blood Urea Nitrogen 39 mg/dL (9-20); Calcium 9.4 mg/dL (8.4-10.2); Carbon Dioxide 19 mmol/L (22-32); Chloride 109 mmol/L (98-107); Estimated Glomerular Filt Rate 35 mL/min (>60); Glucose 216 mg/dL (70-99); HEMOLYSIS 33 (0-50); Potassium 4.5 mmol/L (3.4-5.1); Sodium 140 mmol/L (137-145)
[2024-12-16 19:51] LABS: NT-proBNP (BNP-Adult 18+) 1350 pg/mL (<450)
[2024-12-16 19:59] LABS: Hemoglobin A1C% w Est Avg Glu 7.9 % (4.0-6.0)
== END ==
PROVIDERS: PCP Family Medicine; Visit Provider Family Medicine
DX: I25.810 Atherosclerosis of coronary artery bypass graft(s) without angina pectoris (principal); N18.32 Chronic kidney disease, stage 3b; I50.22 Chronic systolic (congestive) heart failure; Z79.4 Long term (current) use of insulin; E11.42 Type 2 diabetes mellitus with diabetic polyneuropathy
CPT/HCPCS: 80048; 83036; 83880; 85025